=== PATIENT | female | born 1945 | race Caucasian/White ===

== ENCOUNTER 2016-05-31 14:08 | Emergency (ER) | payer OTHER, MEDICARE ==
[~2016-05-31] VITALS: Ht 160 cm; Wt 51.3 kg
[2016-05-31] MEDS ORDERED: VASOTEC 2.5MG2.5 M1 PO (14:27)
[2016-05-31] MEDS ORDERED: EYE VITAMIN-MI1 EACH PO (14:28)
[2016-05-31] MEDS ORDERED: PAXIL10 MG PO (14:28)
[2016-05-31] MEDS ORDERED: LIPITOR 20 MG T20 M1 PO (14:28)
[2016-05-31] MEDS ORDERED: HYDROCODONE-AP1 EAC6 PO (15:16)
[2016-05-31 16:17] VITALS: BP 160/90
== END 2016-05-31 16:20 | disposition home or self-care (01) ==
LOC: ER 14:08
DX: S52.501A Unspecified fracture of the lower end of right radius, initial encounter for closed fracture (principal); Z85.3 Personal history of malignant neoplasm of breast; Z90.710 Acquired absence of both cervix and uterus; Z88.0 Allergy status to penicillin; Z88.2 Allergy status to sulfonamides; F17.210 Nicotine dependence, cigarettes, uncomplicated; F10.99 Alcohol use, unspecified with unspecified alcohol-induced disorder; W01.198A Fall on same level from slipping, tripping and stumbling with subsequent striking against other object, initial encounter; Y93.89 Activity, other specified; Y92.89 Other specified places as the place of occurrence of the external cause; Y99.8 Other external cause status